=== PATIENT | male | born 1945 | race Caucasian/White ===

== ENCOUNTER → 2017-10-09 | Outpatient (CLI) | payer OTHER ==
[~2017-10-09] MED LIST: BACT800T5 PO; CEPH-460 PO; METF1000 PO; PRED20 PO
--- NOTE | 2017-10-09 23:14 | RADRPT ---
EXAM DATE/TIME: 10/09/2017 13:45 [place] COMPARISON: No previous studies available for comparison. INDICATIONS : Tremors. DOSE: 4.9 mCi Ioflupane Iodine-123 in 2.5 ml total volume MEDICATION(S): 130 mg Potasium Iodine PO one hour prior to injection SPECT IMAGIN.5 Hrs. RADIATION DOSE: 30.27 CTDIvol (mGy) MEDICAL HISTORY : None SURGICAL HISTORY : None. ENCOUNTER: Initial ACUITY: 1 day PAIN SCALE: 0/10 LOCATION: cranial TECHNIQUE: SPECT imaging of the brain was performed in sagittal, axial and coronal planes. Attenuation correctio n was performed with computed tomography and both the attenuation correction and non-attenuation mery ected data sets were reviewed. FINDINGS: Moderately asymmetric relatively diminished striatal uptake. CONCLUSION: Abnormal scan Naveen Castano MD on October 09, 2017 at 23:05 Board Certified Radiologist. This report was verified electronically.
== END ==
LOC: HRAD 09:52
DX: R25.1 Tremor, unspecified (principal)
CPT/HCPCS: 78607; A9584

== ENCOUNTER 2017-10-16 23:38 | Emergency (ER) | payer OTHER ==
[~2017-10-16] VITALS: Ht 170.2 cm; Wt 65.0 kg
[~2017-10-16 23:38] MED LIST changes: -BACT800T5 PO; -CEPH-460 PO; -METF1000 PO
[2017-10-17 00:54] VITALS: BP 168/71; PULSE 100; RESP 18; TEMP 97.6; O2SAT 98
[2017-10-17] MEDS ORDERED: METF1000 PO (01:44)
--- NOTE | 2017-10-17 01:46 | PD ---
HPI Chief Complaint: Skin Problem Time Seen by Provider: 01:40 Travel History International Travel<30 days: No Contact w/Intl Traveler<30days: No Traveled to known affect area: No History of Present Illness HPI The patient is a 72 year old male who presents to the [facility] emergency department with a history of sores on his arms and legs that began a week and a half ago. He reports that he scratched his left hand and then this seemed to get infected, however the other spots popped up on their own. He denies having any insect bites. He denies taking any new medications. He reports a history of poor healing related to his diabetes. He reports that his blood sugar has been well controlled on metformin. He is followed through the [facility] for his primary care. He denies having any fevers or chills, nausea or vomiting. On review of systems otherwise, the patient denies having any recent cough or congestion, neck pain, chest pain, shortness of breath, abdominal pain, diarrhea, urinary symptoms, or neurologic symptoms. The patient reports that the rash is itching and burning. 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, history of chronic bronchitis, history of tobacco abuse Diabetes: Yes Patient Takes Glucophage: Yes (10/16/2017 1900) Diminished Hearing: Yes (right ear [place]) Respiratory: Yes (chronic bronchitis) Tetanus Vaccination: > 5 Years Influenza Vaccination: Yes Past Surgical History Surgical History: No Previous Surgery Social History Alcohol Use: Yes (Occasional) Tobacco Use: Yes (1 pack per day) Substance Use: No Allergies-Medications (Allergen,Severity, Reaction): Coded Allergies: No Known Allergies (Verified , 06/13/10) Reported Meds & Prescriptions Reported Meds & Active Scripts Active Reported Metformin (Metformin HCl) 1,000 Mg Tab 1,000 Mg PO BIDPC Review of Systems Except as stated in HPI: all other systems reviewed are Neg General / Constitutional: No: Fever Eyes: No: Visual changes HENT: No: Headaches Cardiovascular: No: Chest Pain or Discomfort Respiratory: No: Shortness of Breath Gastrointestinal: No: Abdominal Pain Genitourinary: No: Dysuria Musculoskeletal: No: Pain Skin: Positive Rash, Positive Itching Neurologic: No: Weakness Psychiatric: No: Depression Endocrine: No: Polydipsia Hematologic/Lymphatic: No: Easy Bruising Physical Exam Narrative General: The patient is a well-developed well-nourished male in no acute distress. Head and Neck exam: Head is normocephalic atraumatic. Eyes: EOMI, pupils are equal round and reactive to light. Nose: Midline septum with pink mucous membranes Mouth: Dentition unremarkable. Moist mucus membranes. Posterior oropharynx is not erythematous. No tonsillar hypertrophy. Uvula midline. Airway patent. Neck: No palpable lymphadenopathy. No nuchal rigidity. No thyromegaly. Cardiovascular: Regular rate and rhythm without murmurs, gallops, or rubs. No pulse deficit to the extremities on simultaneous auscultation and palpation of his radial artery. Lungs: Clear to auscultation bilaterally. No wheezes, rhonchi, or rales. Abdomen: Soft, without tenderness to palpation in all 4 quadrants of the abdomen. No guarding, rebound, or rigidity. Normal bowel sounds are audible. No tenderness on palpation of McBurney's point. Extremities: No clubbing, cyanosis, or edema. 2+ pulses in all 4 extremities. No calf tenderness on palpation. Back: No costovertebral angle tenderness to palpation. Neurologic Exam: Grossly nonfocal. Skin Exam: The patient on examination is noted to have occasional erythematous papules with pustule formation in the center along the right lower extremity, right upper extremity, and one on the left hand peer intact skin that is warm and dry. Data Data Last Documented VS Vital Signs Date Time Temp Pulse Resp B/P (MAP) Pulse Ox O2 Delivery O2 Flow Rate FiO2 10/17/17 01:53 78 18 138/68 (91) 97 Room Air 10/17/17 00:54 97.6 Orders Orders Electrocardiogram (10/17/17 01:40) Complete Blood Count With Diff (10/17/17 01:40) Comprehensive Metabolic Panel (10/17/17 01:40) C-Reactive Protein (Crp) (10/17/17 01:40) Magnesium (Mg) (10/17/17 01:40) Beta Hydroxybutyrate (Acetone) (10/17/17 01:40) Iv Access Insert/Monitor (10/17/17 01:40) Ecg Monitoring (10/17/17 01:40) Oximetry (10/17/17 01:40) Cefazolin 2 Gm Premix (Ancef 2 Gm Premix (10/17/17 03:15) Sulfamet-Trimeth Ds 800-160 Mg (Bactrim (10/17/17 03:15) Labs Laboratory Tests Test 10/17/17 01:55 White Blood Count 9.0 TH/MM3 Red Blood Count 5.09 MIL/MM3 Hemoglobin 14.7 GM/DL Hematocrit 43.6 % Mean Corpuscular Volume 85.7 FL Mean Corpuscular Hemoglobin 28.8 PG Mean Corpuscular Hemoglobin Concent 33.6 % Red Cell Distribution Width 14.3 % Platelet Count 254 TH/MM3 Mean Platelet Volume 8.1 FL Neutrophils (%) (Auto) 58.3 % Lymphocytes (%) (Auto) 29.3 % Monocytes (%) (Auto) 9.5 % Eosinophils (%) (Auto) 2.4 % Basophils (%) (Auto) 0.5 % Neutrophils # (Auto) 5.2 TH/MM3 Lymphocytes # (Auto) 2.6 TH/MM3 Monocytes # (Auto) 0.9 TH/MM3 Eosinophils # (Auto) 0.2 TH/MM3 Basophils # (Auto) 0.0 TH/MM3 CBC Comment DIFF FINAL Differential Comment Blood Urea Nitrogen 16 MG/DL Creatinine 0.78 MG/DL Random Glucose 132 MG/DL Total Protein 7.6 GM/DL Albumin 4.0 GM/DL Calcium Level 9.2 MG/DL Magnesium Level 1.7 MG/DL Alkaline Phosphatase 86 U/L Aspartate Amino Transf (AST/SGOT) 8 U/L Alanine Aminotransferase (ALT/SGPT) 13 U/L Total Bilirubin 0.2 MG/DL Sodium Level 138 MEQ/L Potassium Level 4.6 MEQ/L Chloride Level 100 MEQ/L Carbon Dioxide Level 31.3 MEQ/L Anion Gap 7 MEQ/L Estimat Glomerular Filtration Rate 98 ML/MIN C-Reactive Protein LESS THAN 0.29 MG/DL B-Hydroxybutyrate 0.11 MMOL/L MDM Medical Decision Making Medical Screen Exam Complete: Yes Emergency Medical Condition: Yes Medical Record Reviewed: Yes Differential Diagnosis Folliculitis, versus abscess, versus infected insect bite, versus Narrative Course During the course of the patient's emergency department visit, the patient's history, examination, and differential diagnosis were reviewed with the patient. The patient was placed on a rn cardiac with oximetry and frequent blood pressure monitoring. The patient had IV access obtained and blood work sent for analysis. The patient was initially provided Ancef 2 g IV. The patient was given Bactrim DS 1 p.o. 1. The patient's laboratory studies were reviewed and remarkable for a white count of 9, hemoglobin 14.7, platelets 254 with monocytes 9.5. CMP is remarkable for a glucose of 132, AST 8, C-reactive protein less than 0.29. Beta hydroxybutyrate is 0.11. The patient will be discharged home with Bactrim and Keflex. The patient is resting comfortably and feels better, is alert and in no distress. The patient's results and examination findings were discussed with the patient. The repeat examination is unremarkable and benign. The history, exam, diagnostic testing, and current condition do not suggest any significant pathology to warrant further testing, continued ED treatment, admission, or surgical evaluation at this point. The vital signs have been stable. The patient does not have uncontrollable pain, intractable vomiting, or other significant symptoms. The patient's condition is stable and appropriate for discharge. The patient will pursue further outpatient evaluation with a primary care physician or other designated or consulting physician as indicated in the discharge instructions. The patient is instructed to report back to the emergency department immediately for reexamination in the mean time if he/ she develops any new or worsening signs or symptoms. The patient expressed understanding and was agreeable with this plan. Diagnosis Primary Impression: Folliculitis Referrals: Primary Care Physician 2 days Patient Instructions: Folliculitis (ED), General Instructions Med/Other Pt SpecificInfo: Prescription(s) given Scripts Sulfamethoxazole-Trimethoprim (Bactrim DS) 800-160 Mg Tab 1 TAB PO BID for Infection, #19 TAB 0 Refills Prov: Yelena Christina MD 10/17/17 Cephalexin (Keflex) 500 Mg Cap 500 MG PO Q6H for Infection, #39 CAP 0 Refills Prov: Yelena Christina MD 10/17/17 Disposition: 01 DISCHARGE HOME Condition: Stable Yelena Christina MD October 17, 2017 01:46
[2017-10-17 01:53] VITALS: BP 138/68; PULSE 78; RESP 18; O2SAT 97
[2017-10-17 02:38] LABS: AUTOMATED NEUTROPHIL # 5.2 TH/MM3 (1.8-7.7); BASOPHIL % 0.5 % (0.0-2.0); EOSINOPHIL # 0.2 TH/MM3 (0-0.4); EOSINOPHIL % 2.4 % (0.0-4.0); HEMATOCRIT 43.6 % (39.0-51.0); HEMOGLOBIN 14.7 GM/DL (13.0-17.0); LYMPH % 29.3 % (9.0-44.0); LYMPHOCYTE # 2.6 TH/MM3 (1.0-4.8); MEAN CELL VOLUME 85.7 FL (80.0-100.0); MEAN CORPUSCULAR HEMOGLOBIN 28.8 PG (27.0-34.0); MEAN CORPUSCULAR HGB CONC 33.6 % (32.0-36.0); MEAN PLATELET VOLUME 8.1 FL (7.0-11.0); MONO % 9.5 % (0.0-8.0); MONOCYTE # 0.9 TH/MM3 (0-0.9); NEUT % 58.3 % (16.0-70.0); PLATELET COUNT 254 TH/MM3 (150-450); RED BLOOD COUNT 5.09 MIL/MM3 (4.50-5.90); RED CELL DISTRIBUTION WIDTH 14.3 % (11.6-17.2)
[2017-10-17 03:04] LABS: ALT (GPT) 13 U/L (12-78); AST (GOT) 8 U/L (15-37); BICARBONATE 31.3 MEQ/L (21.0-32.0); BLOOD UREA NITROGEN 16 MG/DL (7-18); CALCIUM 9.2 MG/DL (8.5-10.1); CHLORIDE 100 MEQ/L (98-107); CREATININE 0.78 MG/DL (0.60-1.30); GLOMERULAR FILTRATION RATE 98 ML/MIN (>89); GLUCOSE,RANDOM 132 MG/DL (74-106); MAGNESIUM 1.7 MG/DL (1.5-2.5); SODIUM (NA) 138 MEQ/L (136-145)
[2017-10-17 03:08] LABS: ALKALINE PHOSPHATASE 86 U/L (45-117); C-REACTIVE PROTEIN LESS THAN 0.29 MG/DL (0.00-0.30); TOTAL BILIRUBIN ADULT 0.2 MG/DL (0.2-1.0); TOTAL PROTEIN 7.6 GM/DL (6.4-8.2)
[2017-10-17] MEDS ORDERED: ceFAZolin 2 GM PREMIX 50 ML IV ONE (03:15)
[2017-10-17] MEDS ORDERED: SULFAMETHOXAZOLE-TRIMETHOPRIM DS 800-160 MG TAB PO ONE (03:15)
[2017-10-17] MEDS ORDERED: CEPH-460 PO (03:32)
[2017-10-17] MEDS ORDERED: BACT800T5 PO (03:32)
== END 2017-10-17 03:52 | disposition home or self-care (01) ==
LOC: NEPE 23:38
DX: L73.9 Follicular disorder, unspecified (principal); E11.9 Type 2 diabetes mellitus without complications; F17.200 Nicotine dependence, unspecified, uncomplicated; Z79.84 Long term (current) use of oral hypoglycemic drugs
CPT/HCPCS: 80053; 82010; 83735; 85025; 86140; 96374; 99284; J0690

== ENCOUNTER 2017-11-05 14:31 | Emergency (ER) | payer OTHER ==
[~2017-11-05] VITALS: Ht 170.2 cm; Wt 70.0 kg
[~2017-11-05 14:31] MED LIST changes: +BACT800T5 PO; +CEPH-460 PO; +METF1000 PO; -PRED20 PO
[2017-11-05 15:00] VITALS: BP 178/78; PULSE 80; RESP 16; TEMP 98.7; O2SAT 97
[2017-11-05 16:55] LABS: BILIRUBIN, URINE NEG (NEG); BLOOD, URINE NEG (NEG); GLUCOSE,URINE 150 mg/dL (NEG); KETONE, URINE NEG (NEG); MUCUS URINE FEW /lpf (OCC); NITRITE,URINE NEG (NEG); URINE COLOR YELLOW (YELLW/STRAW); URINE LEUKOCYTE ESTERASE NEG (NEG)
--- NOTE | 2017-11-05 17:04 | PD ---
HPI Chief Complaint: Complaint Time Seen by Provider: 15:50 Travel History International Travel<30 days: No Contact w/Intl Traveler<30days: No Traveled to known affect area: No History of Present Illness HPI 72-year-old male the presents to the ED for evaluation of left lower quadrant abdominal pain that goes to his back. Patient has had this since yesterday. Per patient has a history of bladder infections and states that it feels similar. Per patient he had one last year. States the pain is 8 out of 10. He apparently went to the [place] today and they sent him here. Per patient they originally wanted to send him to the [facility] but patient decided that he instead wanted to come here as he cannot drive secondary to his Parkinson's. He states that he had this about a year ago he was diagnosed with a bladder infection was given medications to make it better. He states that the pain is only on the left side. Denies any rashes. No urinary issues alert and his urine being cloudy. No history of kidney stones. No allergies to medication. No chest pain or shortness of breath. No fevers chills or sweats. No injury or trauma. No other medical issues. PFSH Past Medical History Diabetes: Yes Diminished Hearing: Yes (right ear [place]) Respiratory: Yes (chronic bronchitis) Social History Alcohol Use: Yes (Occasional) Tobacco Use: Yes (1 pack per day) Substance Use: No Allergies-Medications (Allergen,Severity, Reaction): Coded Allergies: No Known Allergies (Verified Adverse Reaction, Unknown, 11/05/17) Reported Meds & Prescriptions Reported Meds & Active Scripts Active Hydrocodone-Acetaminophen 5-325 mg Tab 1 Tab PO Q6H PRN Diclofenac Sodium DR (Diclofenac Sodium) 75 Mg Tabdr 75 Mg PO BID PRN Bactrim DS (Sulfamethoxazole-Trimethoprim) 800-160 Mg Tab 1 Tab PO BID 7 Days Bactrim DS (Sulfamethoxazole-Trimethoprim) 800-160 Mg Tab 1 Tab PO BID Keflex (Cephalexin) 500 Mg Cap 500 Mg PO Q6H Reported Metformin (Metformin HCl) 1,000 Mg Tab 1,000 Mg PO BIDPC Review of Systems Except as stated in HPI: all other systems reviewed are Neg Physical Exam Narrative GENERAL: SKIN: Warm and dry. HEAD: Atraumatic. Normocephalic. EYES: Pupils equal and round. No scleral icterus. No injection or drainage. ENT: No nasal bleeding or discharge. Mucous membranes pink and moist. Tongue is midline. No uvula deviation. NECK: Trachea midline. No JVD. CARDIOVASCULAR: Regular rate and rhythm. RESPIRATORY: No accessory muscle use. Clear to auscultation. Breath sounds equal bilaterally. GASTROINTESTINAL: Abdomen soft, tender to palpation on the left lower quadrant, nondistended. Hepatic and splenic margins not palpable. MUSCULOSKELETAL: Extremities without clubbing, cyanosis, or edema. No obvious deformities. Full range of motion of the upper and lower extremities bilaterally. 2+ pulses bilaterally. NEUROLOGICAL: Awake and alert. No obvious cranial nerve deficits. Motor grossly within normal limits. Five out of 5 muscle strength in the arms and legs. Normal speech. PSYCHIATRIC: Appropriate mood and affect; insight and judgment normal. Data Data Last Documented VS Vital Signs Date Time Temp Pulse Resp B/P (MAP) Pulse Ox O2 Delivery O2 Flow Rate FiO2 11/05/17 15:00 98.7 80 16 178/78 (111) 97 Orders Orders Urinalysis - C+S If Indicated (11/05/17 15:43) Ct Abd/Pel W/O Iv Contrast (11/05/17 ) Ed Discharge Order (11/05/17 18:36) Sulfamet-Trimeth Ds 800-160 Mg (Bactrim (11/05/17 18:45) Labs Laboratory Tests Test 11/05/17 16:15 Urine Color YELLOW Urine Turbidity CLEAR Urine pH 6.0 Urine Specific [place] 1.015 Urine Protein NEG mg/dL Urine Glucose (UA) 150 mg/dL Urine Ketones NEG mg/dL Urine Occult Blood NEG Urine Nitrite NEG Urine Bilirubin NEG Urine Urobilinogen LESS THAN 2.0 MG/DL Urine Leukocyte Esterase NEG Urine RBC LESS THAN 1 /hpf Urine WBC LESS THAN 1 /hpf Urine Mucus FEW /lpf Microscopic Urinalysis Comment CULT NOT INDICATED MDM Medical Decision Making Medical Screen Exam Complete: Yes Emergency Medical Condition: Yes Medical Record Reviewed: Yes Interpretation(s) UA negative Last Impressions Abdomen/Pelvis CT 11/05/17 0000 Signed Impressions: CONCLUSION: Questionable gallstones and atrophic fatty replaced pancreas. Differential Diagnosis Diverticulitis versus UTI versus cystitis versus kidney stone Narrative Course 72-year-old male the presents to the ED for evaluation of left lower quadrant abdominal pain. Patient was properly examined and was found to have signs and symptoms of unclear etiology. Per patient this is related to bladder infection. He has had bladder infections in the past. Per patient he had it here but per records he is never actually had it here he has been here for infections of the skin as well as some chronic pain. At this time I do recommend hearing as well as EEG as well as an a stone or any acute disease. Patient agrees with this. UA and CT showed no sign of acute disease. Only mucous on UA. Case was discussed with my attending Dr. Hernandez was made aware of all findings. Unclear etiology of the patient's symptoms the patient is very certain that this is related to a bladder infection. He recommends at this time trial of Pyridium, Bactrim and follow-up with PCP. Patient was told this. Patient was told to come recheck in 3 days if not better. See ED if worsening symptoms. Follow-up with PCP. Diagnosis Primary Impression: Abdominal pain Qualified Codes: R10.32 - Left lower quadrant pain Additional Impression: Cystitis Patient Instructions: General Instructions Additional Instructions: Take medication as prescribed. Follow-up with primary care doctor. See ED if worsening symptoms. Pyridium will make urine orange this is normal. Med/Other Pt SpecificInfo: Prescription(s) given Scripts Sulfamethoxazole-Trimethoprim (Bactrim DS) 800-160 Mg Tab 1 TAB PO BID for Infection for 7 Days, #14 TAB 0 Refills Prov: Robbie Hernandez MD 11/05/17 Phenazopyridine (Pyridium) 100 Mg Tab 100 MG PO Q8H Y for DYSURIA, #12 TAB 0 Refills Prov: Robbie Hernandez MD 11/05/[address] (Diclofenac Sodium DR) 75 Mg Tabdr 75 MG PO BID Y for PAIN SCALE 1 TO 10, #20 TAB 0 Refills Prov: Robbie Hernandez MD 11/05/17 Sulfamethoxazole-Trimethoprim (Bactrim DS) 800-160 Mg Tab 1 TAB PO BID for Infection for 7 Days, #14 TAB 0 Refills Prov: Robbie Hernandez MD 11/05/17 Disposition: 01 DISCHARGE HOME Condition: Stable Joel Veras Nov 05, 2017 17:04
--- NOTE | 2017-11-05 18:26 | RADRPT ---
EXAM DATE: 11/05/2017 4:55 PM EDT AGE/SEX: 72 years / Male INDICATIONS: Left side pelvic pain CLINICAL DATA: This is the patient's initial encounter. Patient reports that signs and symptoms have been present for 1 day and indicates a pain score of 8/10. MEDICAL/SURGICAL HISTORY: Diabetes. Chronic bronchitis None. RADIATION DOSE: 7.47 CTDI (mGy) COMPARISON: No prior exams available for comparison. TECHNIQUE: Multiple contiguous axial images were obtained through the abdomen. Images were obtained using multiple row detector helical technique. Using dose reduction techniques, radiation dose was ke pt as low as reasonably achievable to obtain optimal diagnostic quality images. FINDINGS: Abdomen CT: The liver, spleen, kidneys, adrenals are unremarkable. Questionable gallstones are present within the gallbladder. The pancreas appears atrophic in the body and tail of the pancreas and the head of the pancreas appears grossly intact without any mass. There is no evidence for any appreciable pathologic al adenopathy, free fluid, or bowel obstruction. There are atherosclerotic calcifications involving the aorta and iliac arteries chronic in nature. Pelvic CT: There is no evidence for mass, abscess formation, or any significant adenopathy within the pelvis. T here is moderate amount of stool in the colon. There are degenerative changes and possible disc bulg e involving lower lumbosacral spine mainly at L4-5 and L5-S1 not adequately characterized. CONCLUSION: Questionable gallstones and atrophic fatty replaced pancreas. Electronically signed by: Rosa Dimas MD 11/05/2017 6:24 PM EDT
[2017-11-05] MEDS ORDERED: HYDR-3516 PO (18:30)
[2017-11-05] MEDS ORDERED: DICL75TA PO (18:30)
[2017-11-05] MEDS ORDERED: BACT800T5 PO ×2 (18:30→18:37)
[2017-11-05] MEDS ORDERED: PHEN0.4T PO (18:37)
[2017-11-05] MEDS ORDERED: SULFAMETHOXAZOLE-TRIMETHOPRIM DS 800-160 MG TAB PO ONE (18:45)
== END 2017-11-05 18:50 | disposition home or self-care (01) ==
LOC: NEPK 14:31
DX: R10.32 Left lower quadrant pain (principal); N30.90 Cystitis, unspecified without hematuria; E11.9 Type 2 diabetes mellitus without complications; G20 Parkinson's disease; F17.210 Nicotine dependence, cigarettes, uncomplicated; Z79.84 Long term (current) use of oral hypoglycemic drugs
CPT/HCPCS: 74176; 81001; 99284